=== PATIENT | female | born 1990 | race Caucasian/White ===

== ENCOUNTER 2022-10-11 08:32 | Emergency (ER) | payer SELFPAY ==
[2022-10-11] MEDS ORDERED: ZOFRAN ODT 4 MG PO ONE (08:47)
[2022-10-11] MEDS ORDERED: ZOFRAN ODT 4 MG ONE (09:01)
[2022-10-11 10:04] LABS: Appearance CLOUDY (CLEAR); Bilirubin NEGATIVE (NEGATIVE); Dipstick done @ ? MAIN LAB; Glucose NEGATIVE (NEGATIVE); Ketones MODERATE-40 (NEGATIVE); Nitrite NEGATIVE (NEGATIVE); Protein,Urine Dip NEGATIVE (Negative); RBC TRACE-INTACT Ery/ul (0-5); Specific Gravity 1.015 (1.005-1.025); Urobilinogen 1 mg/dL (0-1)
[2022-10-11 10:05] LABS: Bacteria MODERATE /HPF (NEGATIVE); Epithelial Cells FEW /HPF (FEW); Mucus SLIGHT /HPF (NEGATIVE)
[2022-10-11 10:08] LABS: Urine Cultured Indicated? YES
[2022-10-11 10:37] LABS: INFLUENZA A NEGATIVE (NEGATIVE); INFLUENZA B NEGATIVE (NEGATIVE); RESPIRATORY SYNCTIAL VIRUS NEGATIVE (Negative); SARS-CoV-2 Xpert Express NEGATIVE (NEGATIVE)
[2022-10-11] MEDS ORDERED: Rocephin 1000 MG INJ IM ONE (11:00)
[2022-10-11] MEDS ORDERED: Rocephin 1000 MG INJ ONE (11:08)
[2022-10-11] MEDS ORDERED: XYLOCAINE 1% HCL 20 ML MDV ONE (11:08)
--- NOTE | 2022-10-11 11:14 | ERPHSYRPT ---
- History of Present Illness Time Seen by Provider: 10/11/22 08:45 Source: patient Exam Limitations: no limitations Patient Subjective Stated Complaint: Pt reports "I haven't eaten in 3 days, my is me, I can't eat or sleep, my stomach hurts, I feel so tir ed." Triage Nursing Assessment: Pt ambulated to cot with steady upright gait with sad expression and tearful. Alert and oriented x3. No apparent respiratory distress. Pt reports her is her, she is trying to work and take care of the kids and it is to much. She has taken initiative and has scheduled an appoinment with Lexi therapist at the [facility] on October 26, 2022. Patient complains of abdominal pain, nausea, dry heaving, fatigue, not being able to eat or sleep. Pt denies any suicidal or homicidal ideations. Physician History: Patient is a 31-year-old female presents emergency department for evaluation of feeling unwell. Patient states that she is sad. Patient is grieving as her just inform her that he wants a divorce. Since then patient has not eaten. It has been 3 days since she has not eaten a meal. She has not had much to drink. Patient states she feels tired and she wants to sleep. Patient feels depressed. Patient has reached out to a therapist at [place] for an evaluation. Patient is tearful. No homicidal suicidal ideation. Patient has some stomach cramps which she attributes to not eating. No fever. No rash. No trauma. No chest pain or shortness of breath. Patient states she is healthy. Patient appears very sad she is tearful however she states that she must be strong for her children. Portions of this note were created with voice recognition technology. There may be grammatical, spelling, punctuation or sound alike errors Timing/Duration: day(s) (3 days) Severity: moderate Modifying Factors: Improves With: nothing Associated Symptoms: nausea, vomiting Allergies/Adverse Reactions: No Known Drug Allergies Allergy (Verified 10/11/22 08:37) Hx Tetanus, Diphtheria Vaccination/Date Given: No Hx Influenza Vaccination/Date Given: No Travel Risk - International Travel Have you traveled outside of the country in past 3 weeks: No - Coronavirus Screening Are you exhibiting any of the following symptoms?: No Close contact with a COVID-19 positive Pt in past 14-21 Days: No - Vaccine Status Have you recieved a Covid-19 vaccination: No - Review of Systems Constitutional: No Symptoms, No Fever, No Chills Eyes: No Symptoms Ears, Nose, & Throat: No Symptoms Respiratory: No Symptoms, No Cough, No Dyspnea Cardiac: No Symptoms, No Chest Pain, No Edema, No Syncope Abdominal/Gastrointestinal: No Symptoms, No Abdominal Pain, No Nausea, No Vomiti ng, No Diarrhea Genitourinary Symptoms: No Symptoms, No Dysuria Musculoskeletal: No Symptoms, No Back Pain, No Neck Pain Skin: No Symptoms, No Rash Neurological: No Symptoms, No Dizziness, No Focal Weakness, No Sensory Changes Psychological: No Symptoms Endocrine: No Symptoms Hematologic/Lymphatic: No Symptoms Immunological/Allergic: No Symptoms All Other Systems: Reviewed and Negative - Past Medical History Pertinent Past Medical History: Yes Psycho-Social History: Other Other Medical History: depression 2009 - Past Surgical History Past Surgical History: Yes Female Surgical History: Tubal Ligation Other Surgical History: umbilical hernia - Social History Smoking Status: Former smoker How long have you smoked: 4 Exposure to second hand smoke: Yes Drug Use: none Patient Lives Alone: Yes - Female History Hx Last Menstrual Period: 09/14/22 Hx Now: No - Nursing Vital Signs Nursing Vital Signs: Initial Vital Signs Temperature 98.2 F 10/11/22 08:38 Pulse Rate 95 H 10/11/22 08:38 Respiratory Rate 17 10/11/22 08:38 Blood Pressure 127/88 10/11/22 08:38 O2 Sat by Pulse Oximetry 100 10/11/22 08:38 Pain Scale Pain Intensity 0 - Physical Exam General Appearance: no apparent distress, alert Eye Exam: PERRL/EOMI, eyes nml inspection Ears, Nose, Throat Exam: normal ENT inspection, TMs normal, pharynx normal, moist mucous membranes Neck Exam: normal inspection, non-tender, supple, full range of motion Respiratory Exam: normal breath sounds, lungs clear, airway intact, No respiratory distress Cardiovascular Exam: regular rate/rhythm, normal heart sounds, normal peripheral pulses Gastrointestinal/Abdomen Exam: soft, normal bowel sounds, other (Mild suprapubic tenderness.), No tenderness, No mass Back Exam: normal inspection, normal range of motion, No CVA tenderness, No vertebral tenderness Extremity Exam: normal inspection, normal range of motion, pelvis stable Neurologic Exam: alert, oriented x 3, cooperative, normal mood/affect, nml cerebellar function, nml station & gait, sensation nml, No motor deficits Skin Exam: normal color, warm, dry, No rash Lymphatic Exam: No adenopathy SpO2 Interpretation: normal SpO2: 97 O2 Delivery: Room Air - Course Nursing assessment & vital signs reviewed: Yes Ordered Tests: Active Orders 24 hr Category Date Time Status CULTURE,URINE Stat Lab 10/11/22 09:11 Received UA W/RFX CULTURE Stat Lab 10/11/22 09:11 Results Medication Summary Discontinued Medications Generic Name Dose Route Start Last Admin Trade Name Levq PRN Reason Stop Dose Admin Ceftriaxone Sodium 1,000 mg 10/11/22 11:00 Ceftriaxone Sodium 1000 Mg Inj Vial IM 10/11/22 11:01 STAT ONE Ondansetron HCl 4 mg 10/11/22 08:47 10/11/22 09:02 Zofran 4 Mg/Udtablet Orally Disintegrating PO 10/11/22 08:48 4 mg STAT ONE Administration Ondansetron HCl Confirm 10/11/22 09:01 Zofran 4 Mg/Udtablet Orally Disintegrating Administered 10/11/22 09:02 Dose 4 mg .ROUTE .STK-MED ONE Lab/Rad Data: Laboratory Results 10/11/22 10/11/22 Range/Units 10:00 09:11 Urinalys Dipstick Clnc Pending Urine Color YELLOW (YELLOW) Urine Appearance CLOUDY A (CLEAR) Urine pH 6.0 (5-6) Ur Specific [place] 1.015 (1.005-1.025) POC Urine Protein Conf NEGATIVE (Negative) Urine Ketones MODERATE-40 A (NEGATIVE) Urine Nitrite NEGATIVE (NEGATIVE) Urine Bilirubin NEGATIVE (NEGATIVE) Urine Urobilinogen 1 A (0-1) mg/dL Urine Leukocytes MODERATE A (NEGATIVE) Urine WBC (Auto) 16-25 A (0-5) /HPF Urine RBC (Auto) 6-10 A (0-2) /HPF U Epithel Cells (Auto) FEW (FEW) /HPF Urine Bacteria (Auto) MODERATE A (NEGATIVE) /HPF Urine RBC TRACE-INTACT A (0-5) Rocael/ul Urine Mucus (Auto) SLIGHT A (NEGATIVE) /HPF Ur Culture Indicated? YES Urine Glucose NEGATIVE (NEGATIVE) mg/dL Influenza Type A Ag NEGATIVE (NEGATIVE) Influenza Type B Ag NEGATIVE (NEGATIVE) RSV (PCR) NEGATIVE (Negative) SARS-CoV-2 (PCR) NEGATIVE (NEGATIVE) - Progress Progress: improved Progress Note: Patient reassessed. She has no active abdominal pain. There is mild suprapubic tenderness. Work-up reveals urinary tract infection. Patient declined further work-up. Patient tolerated p.o. No vomiting. Patient received a dose of intramuscular Rocephin as well as Zofran. A prescription for Zofran and Keflex was forwarded to patient's pharmacy. Patient currently has an appointment with a therapist scheduled for October 26 to help her cope with her divorce. Patient states she feels much better. HI or SI. Patient feels she is ready for discharge. She voices no other complaints or concerns at this time. Patient agrees to follow-up with her primary care doctor within 48 hours for evaluation. Portions of this note were created with voice recognition technology. There may be grammatical, spelling, punctuation or sound alike errors 10/11/22 11:30 Counseled pt/family regarding: lab results, diagnosis, need for follow-up - Departure Departure Disposition: Home Clinical Impression: UTI (urinary tract infection), Grieving Condition: Stable Critical Care Time: No Referrals: PATEL CAMPUZANO [Primary Care Provider] - Follow up/PCP as directed Additional Instructions: Discharge/Care Plan JIMBO MCDANIELS was seen on 10/11/22 in the Emergency Room. The patient was counseled regarding Diagnosis,Lab results, Imaging studies, need for follow up and when to return to the Emergency Room. Prescriptions given: Discharge Note I have spoken with the patient and/or caregivers. I have explained the patient's condition, diagnosis and treatment plan based on the information available to me at this time. I have answered the patient's and/or caregiver's questions and addressed any concerns. The patient and/or caregivers have as good understanding of the patient's diagnosis, condition and treatment plan as can be expected at this point. The vital signs have been stable. The patient's condition is stable and appropriate for discharge from the emergency department. The patient will pursue further outpatient evaluation with the primary care physician or other designated or consulting physician as outlined in the discharge instructions. The patient and/or caregivers are agreeable to this plan of care and follow-up instructions have been explained in detail. The patient and/or caregivers have received these instruction. The patient/and or caregivers are aware that any significant change in condition or worsening of symptoms should prompt an immediate return to this or the closest emergency department or call 911. Prescriptions: Ondansetron ODT 4 MG [Zofran Odt 4 mg] 4 mg PO Q6H PRN PRN #10 tablet PRN Reason: Vomiting Cephalexin Mh 500 mg [Keflex 500 mg] 500 mg PO TID #21 cap
[2022-10-11 11:36] VITALS: BP 110/62; PULSE 66; O2SAT 99
== END 2022-10-11 11:37 | disposition home or self-care (01) ==
LOC: ED 08:32
DX: N39.0 Urinary tract infection, site not specified (principal); F43.21 Adjustment disorder with depressed mood; R63.0 Anorexia; R53.83 Other fatigue; Z63.5 Disruption of family by separation and divorce; Z28.310 Unvaccinated for COVID-19
CPT/HCPCS: 0241U; 81015; 87086; 96372; 99283; J0696; Q0162

== ENCOUNTER 2023-06-17 13:47 | Emergency (ER) | payer OTHER ==
[2023-06-17] MEDS ORDERED: Sodium Chloride 0.9% 1000 ML 0 ML ONE (13:51)
[2023-06-17] MEDS ORDERED: Epinephrine Preservative Free 1 MG/ML SQ ONE (13:51)
[2023-06-17] MEDS ORDERED: Pepcid 20 MG VIAL IV ONE ×2 (13:51)
[2023-06-17] MEDS ORDERED: solu-MEDROL 125 MG, Sterile H2O 10 ml 2 ML IV ONE ×2 (13:51)
[2023-06-17] MEDS ORDERED: Epinephrine Preservative Free 1 MG/ML ONE (13:52)
[2023-06-17] MEDS ORDERED: BENADRYL 50 MG/ML IV ONE (13:52)
[2023-06-17] MEDS ORDERED: solu-MEDROL ONE (13:52)
[2023-06-17] MEDS ORDERED: Sterile H2O 10 ml IJ ONE (13:52)
--- NOTE | 2023-06-17 13:52 | ERPHSYRPT ---
- History of Present Illness Time Seen by Provider: 06/17/23 13:51 Source: patient, family Exam Limitations: no limitations Physician History: 32-year-old white female has no known drug allergies and presents to the emergency department today after stoll hugging yesterday and noticing facial swelling and tightening of her throat. She has no chest pain. She is not particular short of breath and arrives to the emergency department with room air oxygenation level of 99 to 100%. She is not tachycardic. Timing/Duration: today, yesterday, worse Severity: moderate Associated Symptoms: denies symptoms Allergies/Adverse Reactions: No Known Drug Allergies Allergy (Verified 06/17/23 13:49) Hx Tetanus, Diphtheria Vaccination/Date Given: No Hx Influenza Vaccination/Date Given: No Travel Risk - International Travel Have you traveled outside of the country in past 3 weeks: No - Coronavirus Screening Are you exhibiting any of the following symptoms?: No Close contact with a COVID-19 positive Pt in past 14-21 Days: No - Vaccine Status Have you recieved a Covid-19 vaccination: No - Review of Systems Constitutional: No Symptoms Eyes: No Symptoms Ears, Nose, & Throat: Other (Mild tightening of the throat) Respiratory: No Symptoms Cardiac: No Symptoms Abdominal/Gastrointestinal: No Symptoms Genitourinary Symptoms: No Symptoms Musculoskeletal: No Symptoms Skin: No Symptoms Neurological: No Symptoms Psychological: No Symptoms Endocrine: No Symptoms Hematologic/Lymphatic: No Symptoms Immunological/Allergic: No Symptoms All Other Systems: Reviewed and Negative - Past Medical History Pertinent Past Medical History: Yes Psycho-Social History: Other Other Medical History: depression 2009 - Past Surgical History Past Surgical History: Yes Female Surgical History: Tubal Ligation Other Surgical History: umbilical hernia - Social History Smoking Status: Former smoker How long have you smoked: 4 Exposure to second hand smoke: Yes Drug Use: none Patient Lives Alone: Yes - Nursing Vital Signs Nursing Vital Signs: Initial Vital Signs Pulse Rate 73 06/17/23 13:51 Respiratory Rate 18 06/17/23 13:51 Blood Pressure 122/85 06/17/23 13:51 O2 Sat by Pulse Oximetry 100 06/17/23 13:51 Pain Scale Pain Intensity 8 - Physical Exam General Appearance: mild distress, alert, anxiety Eye Exam: PERRL/EOMI, eyes nml inspection Ears, Nose, Throat Exam: normal ENT inspection, moist mucous membranes Neck Exam: normal inspection, non-tender, supple, full range of motion Respiratory Exam: normal breath sounds, lungs clear, airway intact, No chest tenderness, No respiratory distress, No wheezing, No stridor Cardiovascular Exam: regular rate/rhythm, normal heart sounds, normal peripheral pulses Gastrointestinal/Abdomen Exam: soft, normal bowel sounds, No tenderness Pelvic Exam: not done Rectal Exam: not done Back Exam: normal inspection, normal range of motion, No CVA tenderness, No vertebral tenderness Extremity Exam: normal inspection, normal range of motion, pelvis stable Neurologic Exam: alert, oriented x 3, cooperative, truck rental service attendant II-XII nml as tested, normal mood/affect, nml cerebellar function, nml station & gait, sensation nml Skin Exam: normal color, warm, dry Lymphatic Exam: No adenopathy SpO2 Interpretation: normal O2 Delivery: Room Air - Course Nursing assessment & vital signs reviewed: Yes Ordered Tests: Active Orders 24 hr Category Date Time Status IV Insertion STAT Care 06/17/23 13:51 Active Pulse Oximetry (ED) STAT Care 06/17/23 13:51 Active Medication Summary Discontinued Medications Generic Name Dose Route Start Last Admin Trade Name Levq PRN Reason Stop Dose Admin Methylprednisolone Sodium 0 mg 06/17/23 13:51 06/17/23 13:55 Succinate 125 mg/ Sterile IV 06/17/23 13:52 125 mg Water 2 ml STAT ONE Administration Diphenhydramine HCl 25 mg 06/17/23 13:52 06/17/23 13:56 Diphenhydramine Hcl 50 Mg/Ml Vial IV 06/17/23 13:53 25 mg STAT ONE Administration Diphenhydramine HCl Confirm 06/17/23 13:54 Diphenhydramine Hcl 50 Mg/Ml Vial Administered 06/17/23 13:55 Dose 50 mg .ROUTE .STK-MED ONE Epinephrine HCl 0.3 mg 06/17/23 13:51 06/17/23 13:55 Epinephrine 1 Mg/1 Ml Pf Amp 1 Mg/Ml Ml SQ 06/17/23 13:52 0.3 mg STAT ONE Administration Epinephrine HCl Confirm 06/17/23 13:52 Epinephrine 1 Mg/1 Ml Pf Amp 1 Mg/Ml Ml Administered 06/17/23 13:53 Dose 1 mg .ROUTE .STK-MED ONE Famotidine 40 mg 06/17/23 13:51 06/17/23 13:56 Famotidine 20 Mg/1 Vial IV 06/17/23 13:52 40 mg STAT ONE Administration Famotidine Confirm 06/17/23 13:51 Famotidine 20 Mg/1 Vial Administered 06/17/23 13:52 Dose 40 mg IV .STK-MED ONE Sodium Chloride Confirm 06/17/23 13:51 Sodium Chloride 0.9% 1000 Ml Administered 06/17/23 13:52 Dose 1,000 mls @ ud .ROUTE .STK-MED ONE Methylprednisolone Sodium Succinate Confirm 06/17/23 13:52 Methylprednis Sod Succ 125 Mg/2 Ml Vial Administered 06/17/23 13:53 Dose 125 mg .ROUTE .STK-MED ONE Sterile Water Confirm 06/17/23 13:52 Water For Injection,Sterile 10 Ml Vial Administered 06/17/23 13:53 Dose 10 ml IJ .STK-MED ONE - Progress Progress: improved, re-examined Progress Note: 06/17/23 14:00 Patient's medical issue is 1 of low to moderate complexity. The level of complexity in the work-up performed is based on review of the patient's past medical history, review of the patient medication list, review of the patient drug allergy list, history of present illness and physical findings on examination. No laboratory or radiographic studies are necessary in this patient. This patient's medical issue is emergent, that is, significant allergic reaction requiring epinephrine use. 06/17/23 14:17 Reevaluation/reexamination of the patient shows no stridor, no wheezing. Clinically, the patient states she is breathing much better and does not feel the throat swelling any longer. Counseled pt/family regarding: diagnosis, need for follow-up Medical Desision Making - Independent Historian Additional History obtained from: Family - Diagnostic Testing Diagnostic test were ordered, analyzed, and reviewed by me: No - Risk of complications The pt has a mod risk of morbidity or mortality based on: Need for prescription drug management - Departure Departure Disposition: Home Clinical Impression: Allergic reaction Condition: Stable Critical Care Time: No Referrals: PATEL CAMPUZANO [Primary Care Provider] - Follow up/PCP as directed Additional Instructions: Take adult Benadryl 25 mg orally 3 times a day for the next 5 days. Take your prescription medication as prescribed. Call your primary care doctor tomorrow, 06/18/2023, to make a follow-up appointment for further evaluation and management. Prescriptions: Prednisone 10 mg [Deltasone 10 mg] 10 mg PO TID #12 tablet Famotidine 20 mg [Pepcid 20 MG] 20 mg PO DAILY #5 tablet
[2023-06-17] MEDS ORDERED: BENADRYL 50 MG/ML ONE (13:54)
[2023-06-17 14:03] VITALS: BP 122/85; PULSE 73; RESP 18; O2SAT 100
== END 2023-06-17 14:55 | disposition home or self-care (01) ==
LOC: ED 13:47
DX: T78.40XA Allergy, unspecified, initial encounter (principal); R60.0 Localized edema; Z28.310 Unvaccinated for COVID-19; Z79.52 Long term (current) use of systemic steroids
CPT/HCPCS: 36000; 94760; 96372; 96374; 96375; 99283; J0171; J1200; J2930

== ENCOUNTER 2023-07-09 09:23 | Emergency (ER) | payer OTHER ==
[2023-07-09 09:31] VITALS: TEMP 97; O2SAT 99
--- NOTE | 2023-07-09 09:31 | ERPHSYRPT ---
- History of Present Illness Time Seen by Provider: 07/09/23 09:31 Source: patient, family Exam Limitations: no limitations Patient Subjective Stated Complaint: here for allergic reaction, woke up this morning at [address], has not had medications, has epi pen but did not use Triage Nursing Assessment: pt alert, resp easy, chest clear, no swelling to throat,has swelling to lips, co itching to hands and feet, no rash Physician History: This is a 32-year-old white female patient who presents with what she feels is allergic reaction. She has no known new exposures. Her symptoms began at 530 this morning when she woke up she noticed she had itching to her hands and feet without rash. She also was feeling as though she had swelling of her lips. She has no sensation of throat tightening, cough or any respiratory issues. She has an EpiPen but she did not use it. The last time she used Benadryl was yesterday. She does not have a rash today but she stated there were small welts present when she woke up this morning. Timing/Duration: today Severity: mild Associated Symptoms: rash, No nausea, No vomiting, No abdominal pain, No s hortness of breath, No cough, No chest pain Allergies/Adverse Reactions: No Known Drug Allergies Allergy (Verified 07/09/23 09:31) Hx Tetanus, Diphtheria Vaccination/Date Given: No Hx Influenza Vaccination/Date Given: No Hx Pneumococcal Vaccination/Date Given: No Immunizations Up to Date: Yes Travel Risk - International Travel Have you traveled outside of the country in past 3 weeks: No - Coronavirus Screening Are you exhibiting any of the following symptoms?: No Close contact with a COVID-19 positive Pt in past 14-21 Days: No - Vaccine Status Have you recieved a Covid-19 vaccination: No - Review of Systems Constitutional: No Symptoms Eyes: No Symptoms Ears, Nose, & Throat: Other (Swelling of her lips) Respiratory: No Symptoms Cardiac: No Symptoms Abdominal/Gastrointestinal: No Symptoms Genitourinary Symptoms: No Symptoms, Other Skin: Pruritis, Rash (Bilateral hands and feet) Neurological: No Symptoms Psychological: No Symptoms Endocrine: No Symptoms Hematologic/Lymphatic: No Symptoms Immunological/Allergic: No Symptoms All Other Systems: Reviewed and Negative - Past Medical History Pertinent Past Medical History: Yes Neurological History: No Pertinent History ENT History: No Pertinent History Cardiac History: No Pertinent History Respiratory History: No Pertinent History Endocrine Medical History: No Pertinent History Musculoskeletal History: No Pertinent History GI Medical History: No Pertinent History History: No Pertinent History Psycho-Social History: Other Female Reproductive Disorders: No Pertinent History Other Medical History: depression 2010 - Past Surgical History Past Surgical History: Yes Neuro Surgical History: No Pertinent History Cardiac: No Pertinent History Respiratory: No Pertinent History Gastrointestinal: No Pertinent History Genitourinary: No Pertinent History Musculoskeletal: No Pertinent History Female Surgical History: Tubal Ligation Other Surgical History: umbilical hernia - Social History Smoking Status: Former smoker How long have you smoked: 4 Exposure to second hand smoke: Yes Drug Use: none Patient Lives Alone: No - Female History Hx Last Menstrual Period: now Hx Now: No - Nursing Vital Signs Nursing Vital Signs: Initial Vital Signs Temperature 97.0 F 07/09/23 09:31 Pulse Rate 71 07/09/23 09:31 Respiratory Rate 18 07/09/23 09:31 Blood Pressure 129/82 07/09/23 09:31 O2 Sat by Pulse Oximetry 99 07/09/23 09:31 Pain Scale Pain Intensity 3 - Physical Exam General Appearance: no apparent distress, alert, anxiety, thin Eye Exam: PERRL/EOMI, eyes nml inspection Ears, Nose, Throat Exam: normal ENT inspection, moist mucous membranes Neck Exam: normal inspection, non-tender, supple, full range of motion Respiratory Exam: normal breath sounds, lungs clear, airway intact, No chest tenderness, No respiratory distress Cardiovascular Exam: regular rate/rhythm, normal heart sounds, normal peripheral pulses Gastrointestinal/Abdomen Exam: soft, normal bowel sounds, No tenderness Pelvic Exam: not done Rectal Exam: not done Back Exam: normal inspection, normal range of motion, No CVA tenderness, No vertebral tenderness Extremity Exam: normal inspection, normal range of motion, pelvis stable Neurologic Exam: alert, oriented x 3, cooperative, 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 However, I do not appreciate any rashes on any areas of her itchiness) Lymphatic Exam: No adenopathy SpO2 Interpretation: normal O2 Delivery: Room Air - Course Nursing assessment & vital signs reviewed: Yes - Progress Progress: unchanged Progress Note: 07/09/23 10:06 This patient's medical issue is 1 of low complexity. Level complex in the work- up performed is based on review of the patient's past medical history, review of the patient's medication list, review of the patient's drug allergy list, history present illness and physical findings on examination. Patient does not require any laboratory radiographic studies. Patient will receive Benadryl, Pepcid, and prednisone orally here in the emergency department. She will also receive prescription remotely being sent to her pharmacy for prednisone and Pepcid. She will continue Benadryl 25 mg orally 3 times a day for the next 4 days. Counseled pt/family regarding: diagnosis, need for follow-up Medical Desision Making - Independent Historian Additional History obtained from: Mother - Diagnostic Testing Diagnostic test were ordered, analyzed, and reviewed by me: No - Risk of complications The pt has a mod risk of morbidity or mortality based on: Need for prescription drug management - Departure Departure Disposition: Home Clinical Impression: Allergic reaction Condition: Stable Critical Care Time: No Referrals: PATEL MOISE [Primary Care Provider] - Follow up/PCP as directed Additional Instructions: Take Benadryl 25 mg orally 3 times a day for the next 4 days. Take your prescriptions as prescribed. Follow-up with Dr. Moise in his office today, by phone, to make arranges for follow-up appointment in the next 3 to 5 days. Prescriptions: Prednisone 10 mg [Deltasone 10 mg] 10 mg PO TID #12 tablet Famotidine 20 mg [Pepcid 20 MG] 20 mg PO DAILY #5 tablet
[2023-07-09] MEDS ORDERED: BENADRYL 25 MG CAPSULE PO ONE (10:09)
[2023-07-09] MEDS ORDERED: Pepcid 20 MG PO ONE (10:09)
[2023-07-09] MEDS ORDERED: DELTASONE 20 MG PO ONE (10:10)
[2023-07-09 10:38] VITALS: BP 120/91; PULSE 83; RESP 20
[2023-07-09] MEDS ORDERED: Pepcid 20 MG ONE (10:40)
[2023-07-09] MEDS ORDERED: BENADRYL 25 MG CAPSULE ONE (10:40)
[2023-07-09] MEDS ORDERED: DELTASONE 20 MG ONE (10:40)
== END 2023-07-09 10:54 | disposition home or self-care (01) ==
LOC: ED 09:23
DX: T78.40XA Allergy, unspecified, initial encounter (principal); L29.9 Pruritus, unspecified; Z79.52 Long term (current) use of systemic steroids; Z28.310 Unvaccinated for COVID-19
CPT/HCPCS: 99282; A9270-GY